=== PATIENT | female | born 1970 ===

== ENCOUNTER 2017-05-03 17:05 | Emergency (ER) | payer SELFPAY ==
[2017-05-03 17:19] VITALS: BP 176/99; PULSE 92; RESP 16; TEMP 98.2; O2SAT 98
--- NOTE | 2017-05-03 17:23 | ED PDOC ---
HPI: Skin/Bite Injury Time Seen by Provider: 05/03/17 17:13 Chief Complaint (Nursing): Abnormal Skin Integrity Chief Complaint (Provider): Rash History Per: Patient History/Exam Limitations: no limitations Onset/Duration Of Symptoms: Days (x1) Current Symptoms Are (Timing): Still Present Quality Of Symptoms: Itching Additional Complaint(s): Malinda Ochoa is a 47 year old female, with no past medical history, who presents to the emergency department complaining of itchy rash onset for x2 days. Patient states the rash is localize on her right hand, forearm and left foot. She denies taking new medications. Patient is concerned about chicken pox , but states she already had it when she was 20 years old. She denies any fever or chills. No further medical complaints. PMD: Jeromy Meade Past Medical History Reviewed: Historical Data, Nursing Documentation, Vital Signs Vital Signs: Last Vital Signs Temp 98.2 F 05/03/17 17:14 Pulse 92 H 05/03/17 17:14 Resp 16 05/03/17 17:14 BP 176/99 H 05/03/17 17:14 Pulse Ox 98 05/03/17 17:34 - Family History Family History: States: Unknown Family Hx - Social History Current smoker - smoking cessation education provided: No Alcohol: None Drugs: Denies - Home Medications Home Medications: Ambulatory Orders Medication Instructions Recorded Hydrocortisone 1% Cream [Cortizone 1 / TP BID #1 tube 05/03/17 1% Cream] - Allergies Allergies/Adverse Reactions: Allergies Allergy/AdvReac Type Severity Reaction Status Date / Time No Known Allergies Allergy Verified 05/03/17 17:18 Review of Systems ROS Statement: Except As Marked, All Systems Reviewed And Found Negative Constitutional: Negative for: Fever, Chills Skin: Positive for: Rash (right hand, forearm and left foot) Physical Exam - Reviewed Nursing Documentation Reviewed: Yes Vital Signs Reviewed: Yes - Physical Exam Appears: Positive for: Well, Non-toxic, No Acute Distress Head Exam: Positive for: ATRAUMATIC, NORMAL INSPECTION, NORMOCEPHALIC Skin: Positive for: Normal Color, Warm, Dry, Rash (one erythematous papule on right hand, right forearm and left foot) Eye Exam: Positive for: EOMI, Normal appearance, PERRL Neck: Positive for: Normal, Painless ROM, Supple Respiratory: Negative for: Respiratory Distress Extremity: Positive for: Normal ROM Neurologic/Psych: Positive for: Alert, Oriented - ECG O2 Sat by Pulse Oximetry: 98 (RA) Pulse Ox Interpretation: Normal Medical Decision Making Medical Decision Making: Initial Impression: Rash Initial Plan: ~ Scribe Attestation: Documented by Thien Chavarria, acting as a scribe for Verónica Barnes PA-C. Provider Scribe Attestation: All medical record entries made by the Scribe were at my direction and personally dictated by me. I have reviewed the chart and agree that the record accurately reflects my personal performance of the history, physical exam, medical decision making, and the department course for this patient. I have also personally directed, reviewed, and agree with the discharge instructions and disposition. Disposition - Clinical Impression Clinical Impression: Dermatitis - Patient ED Disposition Is Patient to be Admitted: No Counseled Patient/Family Regarding: Diagnosis, Need For Followup, Rx Given - Disposition Referrals: [facility] [Outside] Disposition: Routine/Home Disposition Time: 17:21 Condition: GOOD Prescriptions: Hydrocortisone 1% Cream [Cortizone 1% Cream] 1 / TP BID #1 tube Instructions: Dermatitis (ED) Forms: [facility] (Vietnamese) Print Language: GAMBIAN
== END 2017-05-03 17:37 | disposition home or self-care (01) ==
LOC: H.ER 17:05
DX: L30.9 Dermatitis, unspecified (principal)